=== PATIENT | male | born 1955 | race Caucasian/White ===

== ENCOUNTER 2019-03-13 13:03 | Observation (INO) | payer OTHER ==
[2019-03-13 13:53] LABS: #Basophils 0.1 thou/uL (0.0-0.2); #Eosinphils 0.3 thou/uL (0.0-0.7); #Lymphocytes 1.1 thou/uL (1.20-3.40); #Monocytes 1.1 thou/uL (0.11-0.59); #Neutrophils 7.8 thou/uL (1.40-6.50); %Basophils 1.2 % (0.0-1.0); %Eosinophils 2.6 % (0.0-10.0); %Lymphocytes 10.7 % (21.0-51.0); %Monocytes 10.3 % (0.0-10.0); %Neutrophils 75.3 % (42.0-75.0); Hemoglobin 16.2 g/dL (14.0-18.0); Mean Corpuscular HGB CONC 35.2 g/dL (32.0-36.0); Mean Corpuscular Volume 93.5 fL (78.0-98.0); Mean Platelet Volume 7.8 fL (7.4-10.4); Platelet Count 196 thou/uL (130-400); RBC Distribution Width 11.5 % (11.5-14.5); White Blood Cell (WBC) Count 10.3 thou/uL (4.8-10.8)
[2019-03-13 14:02] LABS: Anion Gap 16 mmol/L (10-20); BUN (Urea Nitrogen) 14 mg/dL (8.4-25.7); Calc. Creatinine Clearance 0 mL/min (70-130); Calcium 9.2 mg/dL (7.8-10.44); Carbon Dioxide 23 mmol/L (23-31); Chloride 100 mmol/L (98-107); Estimated GFR-MDRD Greater than 90; Glucose 111 mg/dL (80-115); Potassium 3.9 mmol/L (3.5-5.1); Sodium 135 mmol/L (136-145)
[2019-03-13] MEDS ORDERED: Cefepime 2 GM VIAL ONE (14:35)
--- NOTE | 2019-03-13 14:35 | RAD ---
3 VIEWS LEFT FOOT: Date 03/13/19 COMPARISON: None. HISTORY: Diabetic with foot infection. FINDINGS: 3 views of the left foot show no evidence of acute fracture or dislocation. Vascular calcifications a re seen. No osseous erosions are appreciated. No degenerative changes are seen. IMPRESSION: No evidence of acute osseous abnormality. POS: CET
[2019-03-13] MEDS ORDERED: Sodium Chloride 0.9% 100 ML ONE (14:36)
[2019-03-13] MEDS ORDERED: Clindamycin/D5W 900 mg/50 ml Premix Bag ONE (15:38)
[2019-03-13 17:59] VITALS: BMI 33.9
[2019-03-13] MEDS ORDERED: Dextrose 50% Abboject 50 ML SYRINGE SLOW IVP PRN (20:05)
[2019-03-13] MEDS ORDERED: HumaLOG 300 UNITS/3 ML VIAL SC PRN (20:05)
[2019-03-13] MEDS ORDERED: Ondansetron ODT 4 MG TAB PO PRN (20:05)
[2019-03-13] MEDS ORDERED: Dextrose 5% in Water 1,000 ML IV PRN (20:05)
[2019-03-13] MEDS ORDERED: Acetaminophen 325 MG TAB PO PRN (20:05)
[2019-03-13] MEDS: Gabapentin 100 MG CAP PO SCH (20:43)
[2019-03-13] MEDS: Fish Oil 1,000 MG CAP PO SCH (20:43)
[2019-03-13] MEDS: Metoprolol Tartrate 25 MG TAB PO SCH (20:46)
--- NOTE | 2019-03-13 20:55 | PDOC.FPRHP ---
- History of Present Illness Chief Complaint: cellulitis History of Present Illness: Patient is a 63F with PMHx of IDDMII, HTN, Aragon syndrome, LAD stent s/p ND Apr 2017 that was a direct admit from [facility] for LLE cellulitis. Patient reports that last he was trying to cut some of the calluses on his feet. On Saturday he states that he noticed a crack in the skin on the first toe on his left foot. He states that within the last day or so he started to notice tenderness, edema, and erythema of the LLE. He has not been treated for this outpatient and has not been taking any antibiotics. He denies any hx of skin infections. States that he has diabetic neuropathy so the cellulitis hasn' t been that painful. Denies cp, sob, abdominal pain. Denies noticing a fever at home. ED Course: cefepime, vanc, clindamycin - Allergies/Adverse Reactions Allergies Allergy/AdvReac Type Severity Reaction Status Date / Time amoxicillin [From Augmentin] Allergy Verified 03/13/19 18:18 clavulanic acid Allergy Verified 03/13/19 18:18 [From Augmentin] - Home Medications Medication Instructions Recorded Confirmed Type Alpha Lipoic Acid 600 mg PO DAILY 03/13/19 03/13/19 History Aspirin Chewable 81 mg PO DAILY 03/13/19 03/13/19 History Atorvastatin Calcium 40 mg PO DAILY 03/13/19 03/13/19 History Cyanocobalamin (Vitamin B-12) 1,000 mcg PO DAILY 03/13/19 03/13/19 History [B-12] Dapagliflozin/Metformin HCl 5 mg PO BID 03/13/19 03/13/19 History [Xigduo Xr 5 mg-1,000 mg Tablet] Ergocalciferol (Vitamin D2) 50,000 unit PO Q7D 03/13/19 03/13/19 History [Vitamin D2] Folic Acid 0.4 mg PO DAILY 03/13/19 03/13/19 History Gabapentin 100 mg PO BID 03/13/19 03/13/19 History Insulin Degludec [Tresiba] 30 unit SQ DAILY 03/13/19 03/13/19 History Liraglutide [Saxenda] 3 mg SQ DAILY 03/13/19 03/13/19 History Lisinopril [Zestril] 5 mg PO DAILY 03/13/19 03/13/19 History Metoprolol Tartrate [Lopressor] 25 mg PO BID 03/13/19 03/13/19 History Multivit-Min/FA/Lycopen/Lutein 1 each PO DAILY 03/13/19 03/13/19 History [Centrum Silver Men Tablet] [place]-3 Fatty Acids/Fish Oil 1 cap PO BID 03/13/19 03/13/19 History [[place] 3 1,000 mg Softgel] Omeprazole/Sodium Bicarbonate 1 each PO DAILY 03/13/19 03/13/19 History [Omeprazole-Bicarb 20-1,100 Cap] Prasugrel [Effient] 10 mg PO DAILY 03/13/19 03/13/19 History Vit C/Ascorb Sod/Multivit-Min 1,000 mg PO DAILY 03/13/19 03/13/19 History [Emergen-C 500 mg Chewable Tab] - History PMHx:IDDMII, HTN, Aragon syndrome, LAD stent s/p ND Apr 2017 PSHx: R knee sx, LAD stent FHx:non-contributory Social: denies smoking, drug use; occasional etoh use - Review of Systems General: denies: fever/chills, night sweats Eyes: denies: eye pain, vision changes ENT: denies: nasal congestion, rhinorrhea Respiratory: denies: cough, shortness of breath Cardiovascular: denies: chest pain, palpitation Gastrointestinal: denies: nausea, vomiting, diarrhea Genitourinary: denies: incontinence, dysuria Skin: reports: rashes (LLE cellulitis, marker drawn in [facility] ED and has already improved) Musculoskeletal: reports: tenderness (slight tenderness to palpation LLE). denies: arthritis/arthralgias Neurological: denies: syncope, seizure Psychological: denies: anxiety, depression - Vital signs BP: [125/69] HR: [98] RR: [18] Tmax: [98.4] Pox: [94]% on [RA] Wt: [116.6kg] - Physical Exam Constitutional: NAD, awake, alert and oriented HEENT: EOMI, grossly normal hearing, MMM Neck: supple, trachea midline Chest: no-tender to palpation, no lesions Heart: RRR, normal S1/S2 Lungs: CTAB, no respiratory distress, good air movement Abdomen: soft, non-tender Musculoskeletal: normal structure, normal tone Neurological: no focal deficit, normal sensation, other (diabetic neuropathy feet bilaterally) Skin: capillary refill <2 seconds, other (LLE cellulitis, erythema and edema improved from [facility] markings) Heme/Lymphatic: no unusual bruising or bleeding, no purpura Psychiatric: normal mood and affect, good judgment and insight FMR H&P: Results - Labs Result Diagrams: 03/14/19 04:02 03/14/19 04:02 Lab results: WBC 10.3 thou/uL (4.8-10.8) 03/13/19 13:43 Hgb 16.2 g/dL (14.0-18.0) 03/13/19 13:43 Hct 45.8 % (42.0-52.0) 03/13/19 13:43 MCV 93.5 fL (78.0-98.0) 03/13/19 13:43 Plt Count 196 thou/uL (130-400) 03/13/19 13:43 Neutrophils % 75.3 % (42.0-75.0) H 03/13/19 13:43 Sodium 135 mmol/L (136-145) L 03/13/19 13:43 Potassium 3.9 mmol/L (3.5-5.1) 03/13/19 13:43 Chloride 100 mmol/L (98-107) 03/13/19 13:43 Carbon Dioxide 23 mmol/L (23-31) 03/13/19 13:43 BUN 14 mg/dL (8.4-25.7) 03/13/19 13:43 Creatinine 0.76 mg/dL (0.7-1.3) 03/13/19 13:43 Glucose 111 mg/dL (80-115) 03/13/19 13:43 Lactic Acid 1.6 mmol/L (0.5-2.2) 03/13/19 13:43 Calcium 9.2 mg/dL (7.8-10.44) 03/13/19 13:43 FMR H&P: A/P - Problem List (1) Cellulitis of leg, left Current Visit: Yes Status: Acute Code(s): L03.116 - CELLULITIS OF LEFT LOWER LIMB (2) Diabetes mellitus, insulin dependent (IDDM), controlled Current Visit: Yes Status: Acute Code(s): E11.9 - TYPE 2 DIABETES MELLITUS WITHOUT COMPLICATIONS; Z79.4 - [employer] (CURRENT) USE OF INSULIN (3) HTN (hypertension) Current Visit: Yes Status: Acute Code(s): I10 - ESSENTIAL (PRIMARY) HYPERTENSION (4) HLD (hyperlipidemia) Current Visit: Yes Status: Acute Code(s): E78.5 - HYPERLIPIDEMIA, UNSPECIFIED (5) ND, old Current Visit: Yes Status: Acute Code(s): I25.2 - OLD MYOCARDIAL INFARCTION - Plan Patient is a 63F with PMHx of IDDMII, HTN, Aragon syndrome, LAD stent s/p ND Apr 2017 that was a direct admit from [facility] for LLE cellulitis #LLE Cellulitis -WBC, lactic acid wnl -received cefepime, clindamycin, vanc in [facility] ED -erythema has improved from [facility] ED markings -continue vanc, and continue to monitor with transition to PO likely within the next day or so -tylenol, motrin for pain management #IDDMII -patient reports it is will controlled, he thinks his most recent A1C is 5.8% -reported diabetic neuropathy -continue home meds #HTN -controlled at this time -continue home meds #Aragon syndrome -chronic, stable Diet: CC DVT ppx: lovenox Dispo: inpatient for iv abx for lle cellulitis Code: Full FMR H&P: Upper Level - Pertinent history 63 yo M here as direct admit for [facility] ER for LLE cellulitis. He states that about a week ago he was shaving off callouses on his feet and cut a little too deep. He tried wound care at home, but noticed today that his ankle and lower leg has started to become red and tender. He also noted fever at home. He has a hx of well controlled DM. In the ED he was treated with clinda, vanc, cefepime. PMHx DM2 HTN CAD s/p stent of LAD Peripheral edema No surgical Hx See product managent intern note for full ROS, PE, vitals, and labs - Pertinent findings ROS General Complains of fever/chills CV Denies CP, palpitations, or diaphoresis Resp Denies SOB, cough Neuro Complains of numbness in feet GI denies n/v/d/c or abdominal pain Skin complains of redness and pain associated with wound on L great toe PE General NAD, A&O x4 HEENT NCAT, MMM CV RRR, no murmur Resp CTA Abd non tender, no distension, normal BS Neuro CN II- XII grossly intact, no focal deficits. Plantar surface of both feed with decreased sensation Skin open wound on plantar L great toe. Mild erythema and warmth on ankle and lower leg. The area of erythema is well inside previous demarcated area. - Plan Date/Time: 03/13/192050 I, Edward Hendricks DO, have evaluated this patient and agree with findings/plan as outlined by product managent intern resident. Pertinent changes/additions are listed here. 1.Cellulitis -Continue vanc. Dc cefepime and clinda -Blood cx pending -Monitor CBC -Consult wound care 2.DM2 -Low carb diet -Restart home meds -Accucheck achs 3.CAD -Home meds 4.HTN -Home meds PPx lovenox Code full Diet low carb Addendum - Attending - Attending Attestation Date/Time: 03/13/191958 I personally evaluated the patient and discussed the management with Dr. Ramírez. I agree with the History, Examination, Assessment and Plan documented above with any addition or exceptions noted below. The patient is being admitted for left lower extremity cellulitis. Margins have been marked. The patient has IDDM with peripheral neuropathy. A week ago he was aggressively paring down a callus and the day after noted his skin had split open on the plantar surface of the great toe. In the past 24 hours he has noted worsening redness but minimal pain however he doesn't have much feeling due to the neuropathy. Will continue vancomycin. Get wound care involved. Control sugars.
[2019-03-13] MEDS ORDERED: Clindamycin/D5W 900 MG in Premix Bag 1 BAG IVPB SCH (23:00)
[2019-03-14] MEDS: Vancomycin HCl 1.75 GM in Sodium Chloride 0.9% 500 ML IVPB SCH ×3 (00:40→17:18)
[2019-03-14 04:24] LABS: #Basophils 0.1 thou/uL (0.0-0.2); #Eosinphils 0.2 thou/uL (0.0-0.7); #Monocytes 1.1 thou/uL (0.11-0.59); %Basophils 0.6 % (0.0-1.0); %Eosinophils 2.3 % (0.0-10.0); %Lymphocytes 20.9 % (21.0-51.0); %Monocytes 12.2 % (0.0-10.0); %Neutrophils 63.8 % (42.0-75.0); Hemoglobin 15.5 g/dL (14.0-18.0); Mean Corpuscular HGB CONC 34.5 g/dL (32.0-36.0); Mean Corpuscular Hemoglobin 33.6 pg (27.0-31.0); Mean Corpuscular Volume 97.5 fL (78.0-98.0); Mean Platelet Volume 7.6 fL (7.4-10.4); Platelet Count 198 thou/uL (130-400); RBC Distribution Width 11.6 % (11.5-14.5); Red Blood Cell (RBC) Count 4.61 mill/uL (4.70-6.10); White Blood Cell (WBC) Count 9.3 thou/uL (4.8-10.8)
[2019-03-14 04:37] LABS: Anion Gap 13 mmol/L (10-20); BUN (Urea Nitrogen) 12 mg/dL (8.4-25.7); Calc. Creatinine Clearance 164 mL/min (70-130); Calcium 8.8 mg/dL (7.8-10.44); Carbon Dioxide 23 mmol/L (23-31); Chloride 101 mmol/L (98-107); Estimated GFR-MDRD Greater than 90; Glucose 123 mg/dL (80-115); Potassium 3.8 mmol/L (3.5-5.1); Sodium 133 mmol/L (136-145)
[2019-03-14] MEDS ORDERED: Vancomycin HCl 2.25 GM in Sodium Chloride 0.9% 500 ML IVPB SCH (04:45)
--- NOTE | 2019-03-14 06:02 | PDOC.FM ---
- Subjective Subjective: NAEO. Denies fevers, chills. No pain. - Objective MAR Reviewed: Yes Vital Signs & Weight: Vital Signs (12 hours) Temp Pulse Resp BP BP Pulse Ox 03/14/19 02:40 98.5 F 83 17 98/61 98 03/14/19 00:40 98.6 F 88 14 101/56 L 93 L 03/13/19 19:10 100.2 F H 99 22 H 125/69 97 Weight Weight 116.619 kg I&O: 03/12/19 03/13/19 03/14/19 06:59 06:59 06:59 Intake Total 980 Balance 980 Result Diagrams: 03/14/19 04:02 03/14/19 04:02 Phys Exam - Physical Examination Constitutional: NAD HEENT: PERRLA, moist MMs Neck: no nodes, no JVD Respiratory: no wheezing, clear to auscultation bilateral Cardiovascular: RRR, no significant murmur Musculoskeletal: no edema right foot with wrapping, no overt drainage, RLE motor 5/5, pulses present erythem markedly improved from outline Neurological: non-focal, moves all 4 limbs Dx/Plan (1) Cellulitis of leg, left Code(s): L03.116 - CELLULITIS OF LEFT LOWER LIMB Status: Acute (2) Diabetes mellitus, insulin dependent (IDDM), controlled Code(s): E11.9 - TYPE 2 DIABETES MELLITUS WITHOUT COMPLICATIONS; Z79.4 - MCFP (CURRENT) USE OF INSULIN Status: Acute (3) HLD (hyperlipidemia) Code(s): E78.5 - HYPERLIPIDEMIA, UNSPECIFIED Status: Acute (4) HTN (hypertension) Code(s): I10 - ESSENTIAL (PRIMARY) HYPERTENSION Status: Acute (5) SD, old Code(s): I25.2 - OLD MYOCARDIAL INFARCTION Status: Acute - Plan Plan: #LLE Cellulitis -afebrile, no WBC on AM labs -erythema clinically improved -transition to PO abx pending wound and blood cx -wound care -continue vanc #IDDMII -patient reports it is will controlled, he thinks his most recent A1C is 5.8% -reported diabetic neuropathy -continue home meds #HTN -controlled at this time -continue home meds #[place] syndrome -chronic, stable #CAD -continue home ASA Diet: CC DVT ppx: lovenox GI ppx: not indicated Dispo: inpatient for iv abx for lle cellulitis, dispo pending cx with plan to transition to oral abx Code: Full Will discuss w/ Dr. Nava Addendum - Attending - Attending Attestation Date/Time: 03/14/19 [id number] I personally evaluated the patient and discussed the management with Dr. Johnson. I agree with the History, Examination, Assessment and Plan documented above with any addition or exceptions noted below. The patient's cellulitis is improving. Will get wound care today. Continue antibiotics.
[2019-03-14 06:57] LABS: Hemoglobin A1c 6.8 % (4.0-6.0)
[2019-03-14] MEDS ORDERED: FLU VACC QS2019-20(6MOS UP)/PF 60 MCG/0.5 ML SYRINGE IM ONE (09:00)
[2019-03-14] MEDS ORDERED: INSULIN DEGLUDEC 30 UNIT SQ SCH (09:00)
[2019-03-14] MEDS ORDERED: LIRAGLUTIDE 3 MG SQ SCH (09:00)
[2019-03-14] MEDS ORDERED: Non-Formulary Item 1 EACH (Multivit-Min/Fa/Lycopen/Lutein [Centrum Silver Men Tablet] 1 E PO SCH (09:00)
[2019-03-14] MEDS: Atorvastatin Calcium 40 MG TAB PO SCH (10:11)
[2019-03-14] MEDS: Folic Acid 1 MG TAB PO SCH (10:11)
[2019-03-14] MEDS: Fish Oil 1,000 MG CAP PO SCH ×2 (10:11→22:08)
[2019-03-14] MEDS: Cyanocobalamin (Vitamin B-12) 1,000 MCG TAB PO SCH (10:12)
[2019-03-14] MEDS: Gabapentin 100 MG CAP PO SCH ×2 (10:12→22:08)
[2019-03-14] MEDS: Prasugrel 10 MG TAB PO SCH (10:12)
[2019-03-14] MEDS: Multivitamin W/ Minerals 1 TAB PO SCH (10:12)
[2019-03-14] MEDS: Aspirin Chewable 81 MG TAB PO SCH (10:12)
[2019-03-14] MEDS: Metoprolol Tartrate 25 MG TAB PO SCH ×2 (10:13→22:08)
[2019-03-14] MEDS: Lisinopril 5 MG TAB PO SCH (10:13)
[2019-03-14] MEDS: Insulin Glargine 30 UNITS in Pre-Filled Syringe SC SCH (10:14)
[2019-03-14] MEDS: Enoxaparin Sodium 40 MG/0.4 ML SYRINGE SC SCH (10:14)
[2019-03-14] MEDS: DAPAGLIFLOZIN PO SCH (15:57)
[2019-03-14] MEDS: METFORMIN HCL PO SCH (15:57)
[2019-03-14 16:18] LABS: Vancomycin, Trough 23.3 ug/mL
[2019-03-14] MEDS: XIGDUO PO SCH (22:10)
--- NOTE | 2019-03-15 05:55 | PDOC.FM ---
- Subjective Subjective: NAEO. Denies fevers, chills, pain - Objective MAR Reviewed: Yes Vital Signs & Weight: Vital Signs (12 hours) Temp Pulse Resp BP BP Pulse Ox 03/15/19 04:28 97.3 F L 66 18 109/66 96 03/14/19 23:10 97.7 F 73 20 123/78 97 03/14/19 19:24 97.7 F 77 20 110/70 96 Weight Admit Weight 116.619 kg Weight 116.619 kg I&O: 03/13/19 03/14/19 03/15/19 06:59 06:59 06:59 Intake Total 980 1272 Balance 980 1272 Result Diagrams: 03/15/19 06:04 03/15/19 06:04 Phys Exam - Physical Examination Constitutional: NAD HEENT: PERRLA, moist MMs Respiratory: no wheezing, clear to auscultation bilateral Cardiovascular: RRR, no significant murmur Musculoskeletal: no edema, pulses present Neurological: non-focal, moves all 4 limbs Psychiatric: normal affect, A&O x 3 Deviation from normal: left great toe removal of skin, exposure of dermis, no bone, no purulenc -: no ischemia Dx/Plan (1) Cellulitis of leg, left Code(s): L03.116 - CELLULITIS OF LEFT LOWER LIMB Status: Acute (2) Diabetes mellitus, insulin dependent (IDDM), controlled Code(s): E11.9 - TYPE 2 DIABETES MELLITUS WITHOUT COMPLICATIONS; Z79.4 - SHOW HOST/HOSTESS (CURRENT) USE OF INSULIN Status: Acute (3) HLD (hyperlipidemia) Code(s): E78.5 - HYPERLIPIDEMIA, UNSPECIFIED Status: Acute (4) HTN (hypertension) Code(s): I10 - ESSENTIAL (PRIMARY) HYPERTENSION Status: Acute (5) MS, old Code(s): I25.2 - OLD MYOCARDIAL INFARCTION Status: Acute - Plan Plan: #LLE Cellulitis with diabetic foot ulcer -afebrile, no leukocytosis, erythema clinically improving -transition to PO -will discuss possible addition of abx for pseudomonal coverage, continue wound care -will discuss with wound care management #IDDMII -A1c 6.8%, f/u with PCP-discussed #HTN -controlled at this time -continue home meds #[place] syndrome -chronic, stable #CAD -continue home ASA Diet: CC DVT ppx: lovenox GI ppx: not indicated Dispo: inpatient for iv abx for lle cellulitis and diabetic toe wound, dispo pending cx with plan to transition to oral abx Code: Full Will discuss w/ Dr. Nava Addendum - Attending - Attending Attestation Date/Time: 03/15/19 8667 I personally evaluated the patient and discussed the management with Dr. Johnson. I agree with the History, Examination, Assessment and Plan documented above with any addition or exceptions noted below. Patient's cellulitis is improved. Will transition to po antibiotics and dc home. He should see podiatry as an outpt and this was discussed with the pt who voiced understanding.
[2019-03-15 06:09] LABS: #Basophils 0.1 thou/uL (0.0-0.2); #Eosinphils 0.7 thou/uL (0.0-0.7); #Lymphocytes 2.1 thou/uL (1.20-3.40); %Basophils 0.7 % (0.0-1.0); %Eosinophils 7.5 % (0.0-10.0); %Lymphocytes 23.5 % (21.0-51.0); %Monocytes 11.7 % (0.0-10.0); %Neutrophils 56.7 % (42.0-75.0); Hemoglobin 15.9 g/dL (14.0-18.0); Mean Corpuscular HGB CONC 35.3 g/dL (32.0-36.0); Mean Corpuscular Hemoglobin 33.5 pg (27.0-31.0); Mean Platelet Volume 8.1 fL (7.4-10.4); Platelet Count 195 thou/uL (130-400); RBC Distribution Width 11.6 % (11.5-14.5); Red Blood Cell (RBC) Count 4.75 mill/uL (4.70-6.10); White Blood Cell (WBC) Count 8.9 thou/uL (4.8-10.8)
[2019-03-15 06:42] LABS: Chloride 104 mmol/L (98-107); Potassium 4.3 mmol/L (3.5-5.1); Sodium 132 mmol/L (136-145)
[2019-03-15 06:43] LABS: Calcium 8.6 mg/dL (7.8-10.44); Glucose 98 mg/dL (80-115)
[2019-03-15 06:45] LABS: Anion Gap 14 mmol/L (10-20); Carbon Dioxide 18 mmol/L (23-31)
[2019-03-15 06:47] LABS: BUN (Urea Nitrogen) 13 mg/dL (8.4-25.7); Calc. Creatinine Clearance 192 mL/min (70-130); Estimated GFR-MDRD Greater than 90
[2019-03-15 08:42] VITALS: BP 104/61; TEMP 97.1
[2019-03-15] MEDS ORDERED: ALPHA LIPOIC ACID PO SCH (09:00)
[2019-03-15] MEDS: Multivitamin W/ Minerals 1 TAB PO SCH (09:06)
[2019-03-15] MEDS: Fish Oil 1,000 MG CAP PO SCH (09:06)
[2019-03-15] MEDS: Prasugrel 10 MG TAB PO SCH (09:07)
[2019-03-15] MEDS: Folic Acid 1 MG TAB PO SCH (09:07)
[2019-03-15] MEDS: Metoprolol Tartrate 25 MG TAB PO SCH (09:07)
[2019-03-15] MEDS: Lisinopril 5 MG TAB PO SCH (09:07)
[2019-03-15] MEDS: Atorvastatin Calcium 40 MG TAB PO SCH (09:07)
[2019-03-15] MEDS: Gabapentin 100 MG CAP PO SCH (09:07)
[2019-03-15] MEDS: Cyanocobalamin (Vitamin B-12) 1,000 MCG TAB PO SCH (09:07)
[2019-03-15] MEDS: Aspirin Chewable 81 MG TAB PO SCH (09:07)
[2019-03-15] MEDS: Insulin Glargine 30 UNITS in Pre-Filled Syringe SC SCH (09:08)
[2019-03-15] MEDS: Enoxaparin Sodium 40 MG/0.4 ML SYRINGE SC SCH (09:08)
[2019-03-15] MEDS: XIGDUO PO SCH (09:08)
[2019-03-15] MEDS ORDERED: Doxycycline 100 MG CAP PO SCH ×2 (09:15→21:00)
--- NOTE | 2019-03-16 14:19 | DIS ---
DATE OF ADMISSION: 03/13/2019 DATE OF DISCHARGE: 03/15/2019 ADMITTING ATTENDING: Esperanza Nava MD. DISCHARGE ATTENDING: Esperanza Nava MD. RESIDENT: Blanca Johnson, PGY-1. PRIMARY DIAGNOSES: 1. Left lower extremity cellulitis. 2. Severe diabetic neuropathy. 3. Wound to left great toe. SECONDARY DIAGNOSES: 1. Insulin-dependent diabetes mellitus 2. 2. Hypertension. 3. Myocardial infarction, status post stent. 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 CONSULTATIONS: None. IMAGING STUDIES: X-ray of left foot shows no evidence of acute osseous abnormality. DISCHARGE MEDICATIONS: New medications include; 1. Doxycycline 100 mg p.o. q.12 hours for 10 days. Resumed home medications; 1. Gabapentin 100 mg p.o. b.i.d. 2. Vitamin D2 50,000 units p.o. q.7 days. 3. Folic acid 0.4 mg p.o. daily. 4. Omeprazole/bicarbonate one tablet p.o. daily. 5. Multivitamin p.o. daily. 6. B12 1000 mcg p.o. daily. 7. Effient 10 mg p.o. daily. 8. Simms-3 one capsule p.o. b.i.d. 9. Lopressor 25 mg p.o. b.i.d. 10. Lisinopril 5 mg p.o. daily. 11. Insulin 30 units subcu daily. 12. Atorvastatin 40 mg p.o. daily. 13. Aspirin 81 mg p.o. daily. 14. Liraglutide 3 mg subcu daily. 15. Vitamin C (ascorbic acid) 1000 mg p.o. daily. 16. Dapagliflozin/metformin 5 mg/1000 mg tablet, 5 mg p.o. daily. HISTORY OF PRESENT ILLNESS/HOSPITAL COURSE: Mr. Juan Back is a pleasant 63-year-old male with type 2 diabetes, who came in for worsening redness of his left lower extremity. It started a week ago when he was trying to cut the calluses of his feet, causing a wound. Redness worsened spreading to his lower extremity and so he came to the ER. He IV antibiotics administration of left lower extremity cellulitis Wound and blood cultures grew negative. Wound was superficial with no bone involvement. He clinically improved with vancomycin and was transitioned over to p.o. doxycycline. Big part of the wound being caused in the first place was severe diabetic neuropathy, impairing his ability to feel and it was discussed the patient should probably follow up with a supervisor intermediates to help with feet and callus cleaning. He sees an out of town doctor, but we gave him the contact information for local supervisor intermediates and PCP follow up in town. The patient was sent home stable with wound care instructions and supplies and return precautions. DISPOSITION: Stable. DISCHARGE INSTRUCTIONS: 1. Location: Home. 2. Diet: Carb consistent diet. 3. Activity: Ad martha as tolerated. 4. Followup: a. Please follow up with PCP Dr. Hood in the next few days. If unable to see him Please establish care at [facility] b. Follow up with Wound Care. Job ID: [id number] [facility] HOSPITALEsperanza
[2019-03-20] MEDS ORDERED: Ergocalciferol 1.25 MG(50,000 UNITS) CAP PO SCH (09:00)
== END 2019-03-15 11:06 | disposition home or self-care (01) ==
LOC: SCSER 13:03 → 2SW 17:55
PROVIDERS: ADMIT Family Medicine; ATTEND Family Medicine
DX: L03.116 Cellulitis of left lower limb (principal); E11.42 Type 2 diabetes mellitus with diabetic polyneuropathy; S91.102A Unspecified open wound of left great toe without damage to nail, initial encounter; I10 Essential (primary) hypertension; I25.10 Atherosclerotic heart disease of native coronary artery without angina pectoris; I25.2 Old myocardial infarction; E80.4 Gilbert syndrome; E78.00 Pure hypercholesterolemia, unspecified; G61.0 Guillain-Barre syndrome; Z79.4 Long term (current) use of insulin; Z79.84 Long term (current) use of oral hypoglycemic drugs; Z79.899 Other long term (current) drug therapy; Z88.0 Allergy status to penicillin; Z95.5 Presence of coronary angioplasty implant and graft
CPT/HCPCS: 36415; 36416; 80048; 80202; 83036; 83605; 85025; 87040; 87070; 87077; 87205; 96365; 96367; J0692; J1650; J1815; J3370; J3490; J7050; Q0162

== ENCOUNTER 2019-08-19 08:04 | Outpatient (CLI) | payer BC ==
--- NOTE | 2019-08-19 10:23 | MRI ---
MRI Lower Ext Jt Lt W WO Con History: Chronic ulcer Comparison: Radiograph March 2019 Findings: Bones: On the T1 weighted imaging sequence there is a very low-grade loss of normal marrow signal dis jose antonio phalanx great toe with subsequent enhancement and increased fluid signal on the STIR images. Subtle erasure of the tuft of the distal phalanx measuring cavity and cortex. There is mild degenerative disease of the metatarsal phalangeal joint and interphalangeal joint of th e great toe. No acute fracture. Tendons: No significant tenosynovitis. No rupture. Muscles: There is atrophy of the intrinsic musculature of the foot. Soft tissues: Calcified formation and defect along the plantar medial aspect of the great toe metatar helene phalangeal joint. There is also thickening and edema within the medial plantar soft tissues of the great toe distal phalanx. No drainable fluid collection is appreciated. Impression: Findings of low-grade osteitis and early osteomyelitis great toe distal phalanx primarily involving the tuft and diaphysis without reactive interphalangeal joint synovitis.
[2019-08-19] MEDS ORDERED: Magnevist 469MG/ML 20 ML VIAL ONE (15:33)
== END 2019-08-19 08:05 | disposition home or self-care (01) ==
LOC: BICMRI 08:04
PROVIDERS: ATTEND Podiatrist Foot & Ankle Surgery
DX: L97.529 Non-pressure chronic ulcer of other part of left foot with unspecified severity (principal); I70.245 Atherosclerosis of native arteries of left leg with ulceration of other part of foot; M86.9 Osteomyelitis, unspecified
CPT/HCPCS: 82565; A9579

== ENCOUNTER 2020-11-22 10:45 | Emergency (ER) | payer MEDICARE | END 2020-11-22 13:35 | disposition home or self-care (01) | LOC: ERS 10:45 | DX: M79.662 Pain in left lower leg (principal); Z79.82 Long term (current) use of aspirin; Z79.899 Other long term (current) drug therapy; G47.30 Sleep apnea, unspecified; E78.5 Hyperlipidemia, unspecified; E78.00 Pure hypercholesterolemia, unspecified; I10 Essential (primary) hypertension ==

== ENCOUNTER 2023-02-19 08:58 | Outpatient (CLI) | payer MEDICARE | END 2023-02-19 08:59 | disposition home or self-care (01) | LOC: ULT 08:58 | PROVIDERS: ATTEND Physician Assistant Medical | DX: R79.89 Other specified abnormal findings of blood chemistry (principal); K80.20 Calculus of gallbladder without cholecystitis without obstruction; R93.2 Abnormal findings on diagnostic imaging of liver and biliary tract; Z86.010 Personal history of colon polyps | CPT/HCPCS: 76705 ==

== ENCOUNTER 2023-03-12 10:26 | Outpatient (CLI) | payer MEDICARE ==
[2023-03-12] MEDS ORDERED: Magnevist 469MG/ML 20 ML VIAL ONE (15:42)
== END 2023-03-12 10:27 | disposition home or self-care (01) ==
LOC: MRI 10:26
PROVIDERS: ATTEND Physician Assistant Medical
DX: R16.0 Hepatomegaly, not elsewhere classified (principal); R79.89 Other specified abnormal findings of blood chemistry
CPT/HCPCS: 74183; A9579

== ENCOUNTER 2023-12-11 07:12 | Day surgery (SDC) | payer MEDICARE ==
[2023-12-11 07:28] LABS: #Basophils 0.06 10x3/uL (0.0-0.2); %Basophils 0.9 % (0.0-1.0); %Eosinophils 4.6 % (0.0-10.0); %Lymphocytes 16.3 % (21.0-51.0); %Monocytes 12.7 % (0.0-10.0); %Neutrophils 65.2 % (42.0-75.0); Hematocrit 42.1 % (42.0-52.0); Hemoglobin 14.8 g/dL (14.0-18.0); Mean Corpuscular HGB CONC 35.2 g/dL (32.0-36.0); Mean Corpuscular Hemoglobin 33.6 pg (27.0-31.0); Mean Corpuscular Volume 95.7 fL (78.0-98.0); Mean Platelet Volume 9.3 fL (7.4-10.4); Platelet Count 163 10x3/uL (130-400); RBC Distribution Width 15.8 % (11.5-14.5)
[2023-12-11 07:46] LABS: INR-International Normal Ratio 1.3; PTT 38.9 sec (22.9-36.1); Prothrombin Time 15.9 sec (12.0-14.7)
[2023-12-11] MEDS ORDERED: Lidocaine 1% PF 5 ML VIAL ONE (08:00)
[2023-12-11] MEDS ORDERED: Sodium Bicarbonate 2.5 MEQ/5 ML SDV ONE (08:01)
[2023-12-11] MEDS ORDERED: Albumin 25% 100 ML ONE (08:56)
== END 2023-12-11 09:40 | disposition home or self-care (01) ==
LOC: ULT 07:12
PROVIDERS: ATTEND Physician Assistant Medical
PROC: 0W9G3ZZ Drainage of Peritoneal Cavity, Percutaneous Approach (ICD-10-PCS; principal; 2023-12-11)
DX: R18.8 Other ascites (principal); Z88.0 Allergy status to penicillin; Z88.1 Allergy status to other antibiotic agents
CPT/HCPCS: 49083; 85025; 85610; 85730; P9047

== ENCOUNTER 2024-02-22 06:50 | Inpatient (IN) | payer MEDICARE ==
[2024-02-22] MEDS ORDERED: Ondansetron PF 4 MG/2 ML Vial ONE (07:02)
[2024-02-22 07:08] LABS: #Basophils Less than 0.03 10x3/uL (0.0-0.2); %Basophils 0.2 % (0.0-1.0); %Eosinophils 0.7 % (0.0-10.0); %Lymphocytes 6.7 % (21.0-51.0); %Monocytes 5.9 % (0.0-10.0); %Neutrophils 86.2 % (42.0-75.0); Hematocrit 42.2 % (42.0-52.0); Hemoglobin 15.5 g/dL (14.0-18.0); Mean Corpuscular HGB CONC 36.7 g/dL (32.0-36.0); Mean Corpuscular Hemoglobin 36.1 pg (27.0-31.0); Mean Corpuscular Volume 98.4 fL (78.0-98.0); Mean Platelet Volume 9.9 fL (7.4-10.4); Platelet Count 262 10x3/uL (130-400); RBC Distribution Width 13.9 % (11.5-14.5); Red Blood Cell (RBC) Count 4.29 mill/uL (4.70-6.10)
[2024-02-22] MEDS ORDERED: Piperacillin/Tazobactam 4.5 GM VIAL ONE (07:24)
[2024-02-22] MEDS ORDERED: Sodium Chloride 0.9% 100 ML ONE (07:24)
[2024-02-22 07:26] LABS: ALT (SGPT) 55 U/L (8-55); AST (SGOT) 96 U/L (5-34); Alkaline Phosphatase 453 U/L (40-110); Anion Gap 20 mmol/L (10-20); BUN (Urea Nitrogen) 50 mg/dL (8.4-25.7); Bilirubin, Total 6.4 mg/dL (0.2-1.2); Calc. Creatinine Clearance 0 mL/min (70-130); Calcium 8.1 mg/dL (7.8-10.44); Carbon Dioxide 26 mmol/L (23-31); Chloride 86 mmol/L (98-107); Estimated GFR 37; Globulin 4.1 g/dL (2.4-3.5); Glucose 153 mg/dL (80-115); Potassium 3.3 mmol/L (3.5-5.1); Protein, Total 6.1 g/dL (5.8-8.1); Sodium 129 mmol/L (136-145)
[2024-02-22 07:42] LABS: INR-International Normal Ratio 1.3; PTT 32.9 sec (22.9-36.1); Prothrombin Time 16.5 sec (12.0-14.7)
[2024-02-22 07:44] LABS: Troponin I 0.019 ng/mL (< 0.028)
[2024-02-22] MEDS ORDERED: EPINEPHrine 1 MG/10 ML Abboject SYRINGE ONE (08:15)
[2024-02-22 10:04] LABS: Lactic Acid 3.57 mmol/L (0.5-2.2)
[2024-02-22] MEDS ORDERED: Iopamidol-370 76% 500 ML MDV (1 ML CHARGE) ONE (11:28)
[2024-02-22] MEDS ORDERED: Ketorolac Tromethamine 30 MG (1 mL) VIAL IVP PRN (11:50)
[2024-02-22] MEDS ORDERED: traMADol HCl 50 MG TAB PO PRN (11:50)
[2024-02-22] MEDS ORDERED: Insulin Lispro 100 UNIT/ML 10 ML VIAL SC PRN (11:57)
[2024-02-22] MEDS ORDERED: Dextrose 50% Abboject 50 ML SYRINGE SLOW IVP PRN (11:57)
[2024-02-22] MEDS ORDERED: Glucagon 1 MG/ML KIT IM PRN (11:57)
[2024-02-22] MEDS ORDERED: Dextrose 5% in Water 1,000 ML IV PRN (11:57)
[2024-02-22] MEDS: Acetaminophen 325 MG TAB PO SCH (13:16)
[2024-02-22] MEDS: Sodium Chloride 0.9% 1,000 ML IV SCH (13:25)
[2024-02-22] MEDS: Loperamide HCl 2 MG CAP PO PRN (14:50)
[2024-02-22] MEDS: Meropenem 1 GM in Sodium Chloride 0.9% 100 ML IVPB SCH (20:53)
[2024-02-22] MEDS: Famotidine/PF 20 mg/2ml Vial SLOW IVP SCH (20:53)
[2024-02-22] MEDS: Gabapentin 300 MG CAP PO SCH (20:54)
[2024-02-22] MEDS: Potassium Chloride 20 MEQ in Lactated Ringer's 1,000 ML IV SCH (21:07)
[2024-02-22 21:27] VITALS: BMI 26.9
[2024-02-23] MEDS: Enoxaparin 40 MG (0.4 mL) SYRINGE SC SCH (07:06)
[2024-02-23] MEDS: Lisinopril 5 MG TAB PO SCH (07:55)
[2024-02-23] MEDS: Insulin Glargine 30 UNITS/0.3 ML VIAL SC SCH (07:55)
[2024-02-23] MEDS: Gabapentin 100 MG CAP PO SCH (08:37)
[2024-02-23] MEDS: Loperamide HCl 2 MG CAP PO SCH (08:37)
[2024-02-23] MEDS: Aspirin Chewable 81 MG TAB PO SCH (08:37)
[2024-02-23] MEDS: Pantoprazole DR 40 MG TAB PO SCH (08:37)
[2024-02-23] MEDS: Meropenem 1 GM in Sodium Chloride 0.9% 100 ML IVPB SCH (08:37)
[2024-02-23] MEDS ORDERED: Liraglutide [Saxenda] 3 MG/0.5 ML Pen.Injctr SC SCH (09:00)
[2024-02-23 09:24] LABS: #Basophils 0.03 10x3/uL (0.0-0.2); %Basophils 0.5 % (0.0-1.0); %Eosinophils 2.4 % (0.0-10.0); %Monocytes 6.7 % (0.0-10.0); %Neutrophils 65.2 % (42.0-75.0); Hematocrit 40.8 % (42.0-52.0); Hemoglobin 14.3 g/dL (14.0-18.0); Mean Corpuscular Hemoglobin 35.2 pg (27.0-31.0); Mean Corpuscular Volume 100.5 fL (78.0-98.0); Mean Platelet Volume 9.8 fL (7.4-10.4); Platelet Count 168 10x3/uL (130-400); RBC Distribution Width 14.5 % (11.5-14.5); Red Blood Cell (RBC) Count 4.06 mill/uL (4.70-6.10)
[2024-02-23 09:43] LABS: Anion Gap 18 mmol/L (10-20); BUN (Urea Nitrogen) 43 mg/dL (8.4-25.7); Calc. Creatinine Clearance 52 mL/min (70-130); Calcium 7.6 mg/dL (7.8-10.44); Carbon Dioxide 26 mmol/L (23-31); Chloride 96 mmol/L (98-107); Estimated GFR 43; Glucose 114 mg/dL (80-115); Potassium 3.7 mmol/L (3.5-5.1); Sodium 136 mmol/L (136-145)
[2024-02-23] MEDS: Sodium Chloride 0.9% 1,000 ML IV SCH (10:19)
[2024-02-23] MEDS: Albumin 25% 25 GM (100 mL) BOT IVPB SCH (11:54)
[2024-02-23 18:11] LABS: Bacteria/HPF None Seen HPF (None Seen); Bilirubin Negative (Negative); Blood, Urine 3+ (Negative); Clarity Clear (Clear); Glucose, Urine (Dipstick) Normal (Negative); Ketone, Urine Negative (Negative); Leukocyte Negative Leu/uL (Negative); Nitrite Negative (Negative); Protein, Urine (Dipstick) 30 mg/dL (Neg-Trace); Specific Gravity, Urine 1.027 (1.002-1.036); Squamous Epithelial 0-3 HPF (0-3); Urobilinogen Normal mg/dL (Less than 2); WBC/HPF 0-3 HPF (0-3)
[2024-02-24] MEDS: Ondansetron PF 4 MG/2 ML Vial IVP PRN (15:18)
[2024-02-24 15:32] VITALS: BMI 26.9
[2024-02-25 08:42] LABS: #Basophils 0.03 10x3/uL (0.0-0.2); %Basophils 0.5 % (0.0-1.0); %Lymphocytes 25.6 % (21.0-51.0); %Monocytes 11.3 % (0.0-10.0); %Neutrophils 59.3 % (42.0-75.0); Hematocrit 34.7 % (42.0-52.0); Mean Corpuscular HGB CONC 34.6 g/dL (32.0-36.0); Mean Corpuscular Hemoglobin 34.8 pg (27.0-31.0); Mean Corpuscular Volume 100.6 fL (78.0-98.0); Mean Platelet Volume 9.4 fL (7.4-10.4); Platelet Count 134 10x3/uL (130-400); RBC Distribution Width 14.3 % (11.5-14.5); Red Blood Cell (RBC) Count 3.45 mill/uL (4.70-6.10)
[2024-02-25 09:01] LABS: ALT (SGPT) 26 U/L (8-55); AST (SGOT) 49 U/L (5-34); Albumin 2.3 g/dL (3.4-4.8); Alkaline Phosphatase 254 U/L (40-110); Anion Gap 13 mmol/L (10-20); BUN (Urea Nitrogen) 25 mg/dL (8.4-25.7); Bilirubin, Total 4.3 mg/dL (0.2-1.2); Calc. Creatinine Clearance 95 mL/min (70-130); Calcium 7.5 mg/dL (7.8-10.44); Carbon Dioxide 24 mmol/L (23-31); Chloride 99 mmol/L (98-107); Estimated GFR 89; Globulin 2.5 g/dL (2.4-3.5); Glucose 92 mg/dL (80-115); Protein, Total 4.8 g/dL (5.8-8.1); Sodium 133 mmol/L (136-145)
[2024-02-25] MEDS ORDERED: Sodium Bicarbonate 0.5 MEQ/ML SDV 10 ML ONE (13:17)
[2024-02-25] MEDS ORDERED: Lidocaine 1% w/Epinephrine 1:100K 20 ML VIAL ONE (13:17)
[2024-02-25] MEDS ORDERED: fentaNYL 50 mcg/mL 1 mL Vial ONE (13:26)
[2024-02-25] MEDS ORDERED: Midazolam HCl 2 mg/2 ml Vial ONE (13:26)
[2024-02-25] MEDS ORDERED: CEFAZOLIN 2 GM VIAL ONE (13:50)
[2024-02-26 15:40] VITALS: TEMP 97.8
[2024-02-26 15:49] VITALS: BP 79/61
[2024-02-26] MEDS ORDERED: Meropenem 1 GM in Sodium Chloride 0.9% 100 ML IVPB SCH (18:00)
== END 2024-02-26 17:23 | DRG 433 ==
LOC: ERS 06:50 → T4-B 12:47
PROVIDERS: ADMIT Family Medicine; ATTEND Hospitalist
PROC: 0JH83XZ Insertion of Tunneled Vascular Access Device into Abdomen Subcutaneous Tissue and Fascia, Percutaneous Approach (ICD-10-PCS; principal; 2024-02-25)
PROC: 0WHG33Z Insertion of Infusion Device into Peritoneal Cavity, Percutaneous Approach (ICD-10-PCS; 2024-02-25)
PROC: 0W9G3ZZ Drainage of Peritoneal Cavity, Percutaneous Approach (ICD-10-PCS; 2024-02-25)
DX: K74.60 Unspecified cirrhosis of liver (principal); E87.1 Hypo-osmolality and hyponatremia; N17.9 Acute kidney failure, unspecified; A08.4 Viral intestinal infection, unspecified; Z51.5 Encounter for palliative care; Z66 Do not resuscitate; E11.9 Type 2 diabetes mellitus without complications; I10 Essential (primary) hypertension; Z88.1 Allergy status to other antibiotic agents; Z88.8 Allergy status to other drugs, medicaments and biological substances; E78.5 Hyperlipidemia, unspecified; I25.10 Atherosclerotic heart disease of native coronary artery without angina pectoris; Z95.5 Presence of coronary angioplasty implant and graft; E80.4 Gilbert syndrome; W19.XXXA Unspecified fall, initial encounter; G47.33 Obstructive sleep apnea (adult) (pediatric); Z79.899 Other long term (current) drug therapy; Z79.82 Long term (current) use of aspirin; Y93.89 Activity, other specified; Y92.89 Other specified places as the place of occurrence of the external cause; E87.6 Hypokalemia
CPT/HCPCS: 36415; 36416; 49418; 70450; 71045; 74018; 74177; 76705; 76942; 80048; 80053; 81003; 81015; 82274; 83605; 83690; 84145; 84484; 85025; 85610; 85730; 86850; 86900; 86901; 87040; 93005; 96360; 96361; 96374; 96375; 99152; 99153; C1769; J0171; J1650; J1815; J2185; J2250; J2405; J2543; J3010; J3480; J3490; J7030; J7120; P9047; Q9967